=== PATIENT | male | born 2000 | race Caucasian/White ===

== ENCOUNTER 2019-06-26 21:21 | Emergency (ER) | payer BC, OTHER ==
[~2019-06-26] VITALS: Ht 177.8 cm; Wt 59.5 kg
[2019-06-26 21:41] VITALS: BP 133/93
[2019-06-27] MEDS ORDERED: LIDOCAINE 1%, 10ML INFIL ONE
[2019-06-27] MEDS ORDERED: BUPIVACAINE 0.25% INFIL ONE
[2019-06-27] MEDS ORDERED: LIDOCAINE-MPF 1%, 5ML ONE (00:11)
[2019-06-27] MEDS ORDERED: BUPIVACAINE/PF 0.5% ONE (00:11)
== END 2019-06-27 01:03 | disposition home or self-care (01) ==
LOC: ED 06-27 01:00
DX: K04.7 Periapical abscess without sinus (principal)
CPT/HCPCS: 41800; 99284